=== PATIENT | male | born 1970 | race Caucasian/White ===

== ENCOUNTER 2020-08-13 13:23 | Emergency (ER) | payer SELFPAY ==
[2020-08-13] MEDS ORDERED: HYDROmorphone HCL INJ 2 MG/ML VIAL IV ONE (13:40)
[2020-08-13] MEDS ORDERED: ONDANSETRON INJ 4 MG/2 ML VIAL IV ONE (13:41)
--- NOTE | 2020-08-13 13:43 | ED.PDOC ---
History of Present Illness - General Time Seen by Provider: 08/13/20 13:38 Source: patient, RN notes reviewed, Vital Signs reviewed Additional Information: 49-year-old male patient, with a long history of migraine for the past 20 years, patient presents to the ER because of a migraine headache, patient admits photophobia and phonophobia, patient stated that 5 days ago he went to hospital they gave him Dilaudid and it worked. Patient said the last night he was given Toradol and Phenergan without improvement of symptoms, and today the headache got worse, patient denies any neck pain denies any fever chills patient denies any cigarettes alcohol or drugs no trauma - History of Present Illness Timing/Duration: increasing, waxing and waning Head Injury Location: frontal Recent Head Trauma: no recent headache/trauma Improving Factors: nothing Worsening Factors: nothing Associated Symptoms: other - photophobia and phonophobia Allergies/Adverse Reactions: Allergies NO KNOWN ALLERGY Allergy (Verified 08/13/20 14:28) Home Medications: Ambulatory Orders ALPRAZolam [Xanax] 1 mg PO QID PRN 07/13/14 Citalopram Hydrobromide [Celexa] 20 mg PO DAILY 07/13/14 Topiramate [Topamax] 25 mg PO BEDTIME 07/13/14 levoFLOXacin [Levaquin] 500 mg PO DAILY #7 tab 01/07/16 Bcifqswhbq-Dwepqjmqwppzs-Ykkwe [Fioricet] 1 cap PO Q6HR #20 cap 08/13/20 Review of Systems - Review of Systems Constitutional: States: no symptoms reported EENTM: States: no symptoms reported Respiratory: States: no symptoms reported Cardiology: States: no symptoms reported Gastrointestinal/Abdominal: States: no symptoms reported Genitourinary: States: no symptoms reported Musculoskeletal: States: no symptoms reported Skin: States: no symptoms reported Neurological: States: headache Endocrine: States: no symptoms reported Past Medical History (General) - Patient Medical History Hx Seizures: No Hx Stroke: No Hx Dementia: No Hx Asthma: No Hx of COPD: No Hx Cardiac Disorders: No Hx Congestive Heart Failure: No Hx Pacemaker: No Hx Hypertension: No Hx Thyroid Disease: No Hx Diabetes: No Hx Gastroesophageal Reflux: No Hx Renal Disease: No Hx Cancer: No Hx of HIV: No Hx Hepatitis C: No Hx MRSA: No - Vaccination History Hx Tetanus, Diphtheria Vaccination: No Hx Influenza Vaccination: No Hx Pneumococcal Vaccination: No - Social History Hx Tobacco Use: Yes Hx Chewing Tobacco Use: No Hx Alcohol Use: No Hx Substance Use: No Hx Substance Use Treatment: No Hx Depression: Yes Hx Physical Abuse: No Hx Emotional Abuse: No Hx Suspected Abuse: No - Female History Patient : No Family Medical History - Family History Father Living Status: Still Living Hx Family Hypertension: Yes Mother Living Status: Still Living Hx Family Asthma: Yes Physical Exam - Physical Exam General Appearance: Obvious distress, Well Developed, Well Groomed, Well Hydrated, Well Nourished Eyes, Ears, Nose, Throat Exam: PERRL/EOMI Neck: non-tender, full range of motion, supple, normal inspection Cardiovascular/Chest: normal peripheral pulses, regular rate, rhythm, no edema, no gallop, no JVD Respiratory: chest non-tender, lungs clear, normal breath sounds, no respiratory distress, no accessory muscle use Gastrointestinal/Abdominal: normal bowel sounds, non tender, soft, no organomegaly, no pulsatile mass Back Exam: normal inspection Extremity: normal range of motion, non-tender, normal inspection, no pedal edema, no calf tenderness Mental Status: alert, oriented x 3, depressed affect, 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: normal hearing, normal speech, PERRL Coordination/Gait: normal finger to nose, normal gait Motor/Sensory: no motor deficit, no sensory deficit, no pronator drift Skin Exam: warm/dry Lymphatic: no adenopathy Progress - Progress Progress: 49 year-old male patient, presents with headaches, patient has a long history of migraine headache, he used to see a neurologist for a long time but the neurologist retired so he is seeing another 1, has been seen 2 different times in different hospitals for his migraine headache, he called his neurologist today with him to come to the ER, patient said that the only thing that works for his headache is Dilaudid Phenergan, patient has neurological deficit, no slurred speech no motor deficit no sensory deficit no meningeal signs I asked the Patient if he is ever taken Fioricet and he said no, concerns, I doubt subarachnoid hemorrhage or meningitis, I will prescribe Fioricet and I will recommend following up with a neurologist and as possible 08/13/20 14:45 Departure - Departure Clinical Impression: Headache Qualifiers: Headache type: unspecified Headache chronicity pattern: chronic headache Intractability: not intractable Qualified Code(s): R51.9 - Headache, unspecified; G89.29 - Other chronic pain Disposition: Discharge to Home or Self Care Condition: Good Diet: resume usual diet Referrals: JANI GONZALEZ DO [Primary Care Provider] - 1-2 Weeks Prescriptions: Cqwgdilaau-Tfwsxjkuhqqdi-Olcsg [Fioricet] 1 cap PO Q6HR #20 cap Home Medications: Ambulatory Orders ALPRAZolam [Xanax] 1 mg PO QID PRN 07/13/14 Citalopram Hydrobromide [Celexa] 20 mg PO DAILY 07/13/14 Topiramate [Topamax] 25 mg PO BEDTIME 07/13/14 levoFLOXacin [Levaquin] 500 mg PO DAILY #7 tab 01/07/16 Ogibdypkgn-Quadjedkxyxcw-Qtxop [Fioricet] 1 cap PO Q6HR #20 cap 08/13/20 Additional Instructions: return to ER if there is any severe headache, nausea, vomiting, altered mental status confusion neck pain fever chills worsening headache slurred speech or any other concerns
[2020-08-13 14:27] VITALS: TEMP 98
[2020-08-13] MEDS ORDERED: PROMETHAZINE HCL INJ 12.5 MG in SODIUM CHLORIDE 0.9% 50ML 50 ML IVPB ONE (14:44)
[2020-08-13 15:12] VITALS: O2SAT 96
[2020-08-13 15:23] VITALS: BP 118/76
== END 2020-08-13 15:18 | disposition home or self-care (01) ==
LOC: ER 13:23
DX: R51.9 Headache, unspecified (principal); G89.29 Other chronic pain; H53.149 Visual discomfort, unspecified; F32.9 Major depressive disorder, single episode, unspecified; Z79.899 Other long term (current) drug therapy; Z87.891 Personal history of nicotine dependence
CPT/HCPCS: A4216; J1170; J2405; J2550